=== PATIENT | male | born 1960 | race Caucasian/White ===

== ENCOUNTER → 2024-06-03 06:51 | Outpatient (REF) | payer MEDICARE, BC, SELFPAY | LOC: RAD 06:51 | PROVIDERS: ATTENDING PHYSICIAN Family Medicine | DX: Z87.891 Personal history of nicotine dependence (principal) | CPT/HCPCS: 76770 ==

== ENCOUNTER 2024-06-05 11:35 | Emergency (ER) | payer MEDICARE, BC, SELFPAY ==
[2024-06-05 11:41] VITALS: BP 181/89
[2024-06-05 12:20] VITALS: BP 145/83
--- NOTE | 2024-06-05 12:37 | ED.GENMED ---
History of Present Illness
General
Chief Complaint: Skin Surface Trauma
Source: patient
Exam Limitations: none
Time Seen by Provider: 06/05/24 12:05
Nursing documentation reviewed up to this point in time: agreed with
History of Present Illness
History of Present Illness:
Patient is a 63-year-old male presenting to the emergency department for evaluation of suspected foreign body of left hand. Patient states that 3 weeks ago he was cleaning up broken glass after he shattered a tabletop. He states that he a few
minor cuts on his left hand during the cleanup process. Patient states that since then he has had this intermittent sharp pain in his left digit with certain movements. He is unsure if there may be retained glass in his finger. He came to the
emergency department for further evaluation. Patient denies any significant redness, pain, swelling of finger. Patient denies any fevers or chills.
He did verify that his tetanus shot is up-to-date.
Review of Systems
Review of Systems
Allergies reviewed?: Yes
All Other Systems: ROS reviewed and negative except as documented in HPI and ROS
Phy Exam
Physical Exam
Physical Exam:
Vitals: Mildly hypertensive, otherwise vital signs stable. Afebrile
General: Patient is well appearing, no acute distress
Skin: Warm and dry, no rashes or lesions. No lacerations
Head: Normocephalic, atraumatic
Eyes: Sclera nonicteric. EOMs intact. No nystagmus.
Throat: Protecting airway
Neck: Normal ROM, no cervical spine tenderness, no meningismus
Cardiac: Regular rate and rhythm, no murmurs.
Pulm: Normal respiratory effort, no wheezes, rales, rhonchi heard on exam.
Abdomen: No abdominal tenderness.
Extremities: Left hand/digits without any obvious retained foreign body. Some mild tenderness noted on pulp of left fifth digit. No significant area, edema, streaking of left fifth digit or left hand. Patient has excellent neurology physician assistant strength and full
range of motion in left hand. Left hand/fingers neurovascularly intact. Good distal pulse of left upper extremity.
Neuro: AAOx3. CN II-XII intact. No focal neurologic deficits.
Psychiatric: Normal affect.
Course
Orders/Labs/Results
Orders:
Orders
06/05/24 12:21
CR Hand - Left Min 3 Views Urgent
Comment: palm of hand below index and mid & left pinkie tip
Reason For Exam: foreign body-glass
Vital Signs
Initial and Last Documented VS:
Initial Vital Signs
Temp Pulse Resp BP Pulse Ox
98.2 F 62 16 181/89 98
06/05/24 11:41 06/05/24 11:41 06/05/24 11:41 06/05/24 11:41 06/05/24 11:41
Last Documented Vital Signs
Temp Pulse Resp BP Pulse Ox
98.2 F 59 18 145/83 98
06/05/24 11:41 06/05/24 12:20 06/05/24 12:20 06/05/24 12:20 06/05/24 12:20
MDM/Problems Addressed
Differential Diagnosis Includes:
Not limited to: Retained foreign body, cellulitis, etc.
MDM/Problems Addressed:
63-year-old male presents for concern of possible foreign body in the left fifth digit following cleaning up broken glass 3 weeks ago. Patient with very mild pain/foreign body sensation with certain movements. No fevers, chills or other infectious
symptoms. Patient up-to-date on tetanus vaccine. Vital signs stable. Physical exam as above. Left hand without any obvious retained foreign body. Patient has very mild tenderness on the pulp of the left fifth digit. There is no significant
erythema, edema, red streaking to suggest infection. Patient has full range of motion of left hand with excellent neurology physician assistant strength. Left hand neurovascularly intact. X-ray was obtained which does show possible retained foreign body in pulp of the
left digit. Did contact patient's make aware of these findings.
Given possible foreign body is not superficial�patient will be referred to hand surgeon for further evaluation/management if necessary. Patient understands. Contact information for Dr. Powers and Dr. Lombardi given to patient. He will follow with
them shortly. Patient advised to monitor closely for infection. Otherwise patient stable for discharge. Case discussed with attending physician
Chronic conditions affecting care:
N/A
Acute Exacerbation and/or Progression of Chronic Illness:
N/A
*Radiology
Radiology exam reviewed: preliminary read by ED provider and radiology read reviewed
*Pulse Oximetry
Patient hypoxic: no
*EKG
Interpreted by ED Provider?: NA
*Director Of Provider Relations Interpretation
Rate: Director Of Provider Relations- N/A
*Critical Care Note
Total Time (30-74mins, 75-104mins- exclusive of procedures): Not Applicable
ED Attending Note
-
Portions of this chart may have been created with voice recognition software.� Occasional wrong word or��sound alike� substitutions may have occurred due to the inherent limitations of voice recognition software.
Discharge Plan
Departure
Patient Disposition: Home (Routine Discharge)
Date of Disposition: 06/05/24
Time of Disposition: 12:56
Patient with high blood pressure during this ER visit?: Yes
Covid-19: Not Applicable
Discharge Problem:
Foreign body sensation, left hand
Referrals:
Nuno Powers MD [Active] - Next open appointment
Ralph Lombardi MD [Active] - Next open appointment
Activity Restrictions/Additional Instructions:
RETURN TO THE EMERGENCY DEPARTMENT WITH ANY FEVERS, CHILLS, SEVERE PAIN OR SWELLING IN LEFT HAND/FINGERS, ANY SIGNS OF INFECTION, WORSENING IN CURRENT SYMPTOMS, OR ANY OTHER CONCERNS
-As discussed�there was no visualized foreign body seen on your x-ray of the hand today. You should follow-up with orthopedics, Dr. Nuno Powers or Dr. Lombardi for further evaluation/management. Further imaging may be required.
Monitor your symptoms closely and return to the emergency department with any signs of infection.
Interventions
Interventions:
*Risk Screen - Suicide Last Done: 06/05/24 11:41
*General Assessment Last Done: 06/05/24 11:41
*Neglect/Abuse Screening Last Done: 06/05/24 11:41
ED- Fall Risk Assessment Last Done: 06/05/24 12:35
*Nursing Disposition Last Done: 06/05/24 13:26
ED-Skin Assessment Last Done: 06/05/24 12:20
Discharge Date and Time
Discharge Date/Time: 06/05/24 13:27
Print Language: PERUVIAN
--- NOTE | 2024-06-05 13:26 | EDRN ---
Patient discharged by MARIANO Knox
== END 2024-06-05 13:27 | disposition home or self-care (01) ==
LOC: EMR 11:35
PROVIDERS: EMERGENCY PHYSICIAN Student in an Organized Health Care Education/Training Program; FAMILY PHYSICIAN Family Medicine
DX: R09.A9 Foreign body sensation, other site (principal); R03.0 Elevated blood-pressure reading, without diagnosis of hypertension
CPT/HCPCS: 99283; 73130

== ENCOUNTER 2025-02-10 06:19 | Day surgery (SDC) | payer MEDICARE, BC, SELFPAY | END 2025-02-10 14:27 | disposition home or self-care (01) | LOC: GI 06:19 | PROVIDERS: ATTENDING PHYSICIAN Internal Medicine Gastroenterology | DX: Z12.11 Encounter for screening for malignant neoplasm of colon (principal); K57.30 Diverticulosis of large intestine without perforation or abscess without bleeding; K64.8 Other hemorrhoids; D12.2 Benign neoplasm of ascending colon; D12.4 Benign neoplasm of descending colon; Z86.0100 Personal history of colon polyps, unspecified | CPT/HCPCS: 45380; 88305 ==